=== PATIENT | male | born 1985 | race Caucasian/White ===

== ENCOUNTER 2016-11-13 15:08 | Emergency (ER) | payer OTHER ==
[~2016-11-13 15:08] MED LIST: BACTRIM DS TABL1 TA1 PO; CLOTRIMAZOLE15 GM TP; DAKIN'S473 M1; EFFER-K 10 MEQ10 MEQ PO; KEFLEX PO; KEFLEX500 MG PO; LORTAB 5/500 TA1 TA1 PO; NO MEDICATIONS; OXYCODONE HCL5 MG PO; PATIENT'S PHARMACY; PENICILLIN; ROXICODONE5 MG; TOPROL XL PO; [UNRECOGNIZED DRUG - OTHER] TOP
== END 2016-11-13 15:30 | disposition home or self-care (01) ==
LOC: SED 15:08
DX: L02.01 Cutaneous abscess of face (principal); F17.200 Nicotine dependence, unspecified, uncomplicated
CPT/HCPCS: 99282

== ENCOUNTER 2017-01-10 16:22 | Emergency (ER) | payer OTHER ==
--- NOTE | ~2017-01-10 | CT99 ---
[facility] A Service of [facility] RADIOLOGY TEXT RESULTS PATIENT: GUERA VALENCIA LOCATION: PB : 83 UNIT #: [id number] AGE: [address]: Ina Armenta MD SEX: M ORDER DR: [id number] [facility] [address] [place], [place] [address] [id number] E MR#: [id number] Acc #: [id number] NAME: GUERA VALENCIA : 1985 SEX: M STUDY DATE/TIME: 01/10/2017 17:24 UNIT: PB ROOM: STUDY DESCRIPTION: CT Maxillofacial Area W Cont Attending Physician: Ina Armenta M.D. Ordering Physician: Ina Armenta M.D. Primary Care Physician: Primary Care Physician No MEDICAL IMAGING REPORT This report is preliminary unless electronic signature is present HISTORY CT facial bones HISTORY Facial abscess, swelling, warm under right eye for [address] of the facial bones performed during the intravenous administration of 100 mL of Isovue-370. Imaging acquired in axial plane followed by sagittal and coronal reconstructed images. This CT exam was performed with one or more of the following radiation dose reduction techniques: automatic exposure control, adjustment of mA and/or kV according to patient size, and iterative reconstruction. COMPARISON There is a prior study from 07/25/2016 (on that examination there was left-sided cellulitis and facial abscess). EXAM There is a low attenuation ovoid area just inferior to the right orbit and extending to the inferior preseptal soft tissues on the right side. It has minor peripheral enhancement and is concerning for phlegmon/early abscess formation. This area measures about 4 cm ML dimension, 1.1 cm AP dimension and 1.6 cm SI dimension. There is a second similar low attenuation area at the more lateral aspect of the right orbit at least 1.3 cm SI dimension, 2.1 cm ML dimension and 0.9 cm AP dimension. Again this is most concerning for phlegmon or early abscess formation. It is probably contiguous with the other area partly and again there is apparently some associated involvement of the adjacent preseptal soft tissues. Large amount of surrounding cellulitis right face including the temporal region, lower forehead region, right cheek region. Some of the soft tissue stranding extends to the extraconal anterior inferior retrobulbar fat. No extension of abscess is seen into the retrobulbar STS. [facility] A Service of [facility] RADIOLOGY TEXT RESULTS PATIENT: GUERA VALENCIA LOCATION: [facility] : [birth year] UNIT #: [id number] AGE: [address]: Ina Armenta MD SEX: M ORDER DR: brendan. The globes are intact. The lenses are located. The superior ophthalmic veins are symmetric. The paranasal sinuses are mostly clear. There is minor disease in the frontal sinuses. Sinuses do not appear to be the source of infection. Please correlate with physical exam findings. On the CT scan, there does not appear to be a dental source for infection. IMPRESSION 1. There are at least 2 somewhat contiguous areas of phlegmonous change or early abscess formation involving the right face. First of these areas is seen centered at the inferior aspect of the right orbit extending into the inferior preseptal soft tissues. This first area of involvement is about 3.8 x 1.1 x 2.3 cm dimension. It is probably minimally contiguous with a second area of similar phlegmonous change/early abscess formation at the soft tissues at the lateral aspect of the right orbit measuring about 1.3 x 2.1 x 0.9 cm dimension. There is extensive adjacent cellulitic change in the right face. There is some stranding associated with the cellulitis extending into the extraconal more anterior retrobulbar fat. No retrobulbar extension of abscess is appreciated. 2. There does not appear to be an obvious source of infection in the patient's teeth or paranasal sinuses and please correlate with findings on physical exam. Of note, patient had a similar soft tissue infection in the left face, 08/04/2016 and please correlate with that clinically. Dictated by... Danna Maurice M.D. THIS IS AN ELECTRONICALLY VERIFIED REPORT Danna Maurice M.D. at 01/10/2017 10:54 PM SAC/to TD: 01/10/2017 20:02 JOB #: [id number] MEDICAL IMAGING REPORT Page 1 of 1 COPY
[2017-01-10 16:47] LABS: BUN/CREATININE RATIO 8.88; CALCIUM SERUM 8.7 mg/dL (8.4-10.2); CREATININE SERUM 0.9 mg/dL (0.6-1.4); GLOM FILT RATE Estimated 112.6 mL/min (>60); POTASSIUM 3.7 mmol/L (3.5-5.1)
[2017-01-10 17:29] LABS: BASOPHIL% 0.3 % (0-2.5); EOSINOPHIL# 0.2 X10e3 (0-0.7); EOSINOPHIL% 1.8 % (0.0-7.0); HEMATOCRIT 36.1 % (38.0-50.0); HEMOGLOBIN 12.4 gm/dL (13.0-16.0); LYMPHOCYTE% 11.4 % (17.0-45.0); MEAN CELL VOLUME 90.1 FL (83-96); MEAN CORPUSCULAR HEMOGLOBIN 30.9 PG (28-34); MEAN CORPUSCULAR HGB CONC 34.3 g/dL (30-36); MEAN PLATELET VOLUME 8.4 FL (6.5-11.5); MONOCYTE# 0.6 X10e3 (0-1.0); MONOCYTE% 6.5 % (3.0-12.0); NEUTROPHIL# 7.3 X10e3 (1.5-7.1); PLATELET COUNT 138 X10e3 (140-420); RED BLOOD COUNT 4.01 X10e (3.90-5.60); RED CELL DISTRIBUTION WIDTH 14.2 % (11.0-15.5); WHITE BLOOD COUNT 9.1 X10e3 (4.0-10.5)
[2017-01-10 17:31] LABS: DIFF IND NO
== END 2017-01-10 22:00 | disposition short-term general hospital (02) ==
LOC: CED 16:22
PROVIDERS: Emergency Medicine
DX: S00.81XA Abrasion of other part of head, initial encounter (principal); L03.213 Periorbital cellulitis; X58.XXXA Exposure to other specified factors, initial encounter; Y92.9 Unspecified place or not applicable
CPT/HCPCS: 36415; 70487; 80048; 85025; 87040; 96365; 96366; 96375; 99285; J2270; J2405; J2543; J3370; Q9967